=== PATIENT | male | born 1945 | race Caucasian/White ===

== ENCOUNTER → 2018-01-01 | Outpatient (CLI) | payer OTHER, MEDICARE ==
[~2018-01-01] VITALS: Ht 188 cm; Wt 102.1 kg
[~2018-01-01] MED LIST: ASPIR 8181 MG PO; COZAAR 25MG TAB25 MG PO; FISH OIL 1,001000 M2 PO; LIPITOR 20 MG T20 M1 PO; VITAMIN D1000 UNI1 PO; VITAMIN E400 UNI2 PO
--- NOTE | ~2018-01-01 | PATH ---
[facility] [place] [address] PATHOLOGY RPT PROCEDURE Name: FERDINAND HERRERA Room #: REG [facility] Francisco Javier.#: [id number] Admission: 01/01/18 Date of : 45 Discharge: Report #: [id number] Path Case #: [id number] [facility] Accession Number: [id number] . 01 Material submitted: . PART A: POLYP AT HEPATIC FLEXURE X2 PART B: POLYP AT PROXIIMAL TRANSVERSE COLON X2 PART C: POLYP AT 80CM PART D: POLYP AT 50CM PART E: POLYP AT 40CM . 01 Clinical history: . Pre-OP DX: Hx polyps Post-OP DX: Colon polyp, diverticulosis . 02 Diagnosis: A. "Polyp at hepatic flexure x2", biopsy: - Tubular adenoma; no high grade dysplasia. . B. "Polyp at proximal transverse colon x3", biopsy: - Tubular adenoma; no high grade dysplasia. . C. "Polyp at 80 cm", biopsy: - Hyperplastic polyp. . D. "Polyp at 50 cm", biopsy: - Tubular adenoma; no high grade dysplasia. . E. "Polyp at 40 cm", biopsy: - Tubular adenoma; no high grade dysplasia. . (CLW:jamesonjm;01/02/2018) AGA/01/02/2018 . 02 Electronically signed: . Marizol Bailey MD, Pathologist NPI- [id number] . 01 Gross description: . A. Received in formalin labeled "Ferdinand Herrera, polyp at hepatic flexure x2," are 4 segments of aparicio soft tissue measuring 1.6 x 0.9 x 0.4 cm in aggregate dimensions and ranging from 0.4 to 0.7 cm in maximum dimension. The specimen is submitted entirely in cassette A1. . B. Received in formalin labeled "Ferdinand Herrera, polyp proximal transverse colon x3," are 5 segments of aparicio soft tissue measuring 2.2 x 1.1 x 0.3 cm in aggregate dimensions and ranging from 0.3 to 0.7 cm [address] [address] PATHOLOGY RPT PROCEDURE Name: FERDINAND HERRERA Room #: REG ISIDRO Lofton#: [id number] Admission: 01/01/18 Date of : 45 Discharge: Report #: [id number] Path Case #: [id number] maximum dimension. The specimen is submitted entirely in cassette B1. . C. Received in formalin labeled "Ferdinand Herrera, polyp at 80 cm," is a single segment of aparicio soft tissue measuring 0.5 cm in maximum dimension. The specimen is submitted entirely in cassette C1. . D. Received in formalin labeled "Ferdinand Herrera, polyp at 50 cm," is a single segment of aparicio soft tissue measuring 0.5 cm in maximum dimension. The specimen is submitted entirely in cassette D1. . E. Received in formalin labeled "Ferdinand Herrera, polyp at 40 cm," is a single segment of aparicio soft tissue measuring 0.6 cm in maximum dimension. The specimen is submitted entirely in cassette E1. (TSD; 01/01/2018) TOB/TOB . 02 Pathologist provided ICD-10: D12.3, K63.5, Z86.010 . 02 CPT . 082611, 746483, 178216, 394044, 520995 Specimen Comment: A courtesy copy of this report has been sent to Specimen Comment: [phone]. Specimen Comment: Report sent to Performed at: [address], [place] [id number] MD Bertrand Encarnacion MD Phone: [phone] Performed at: [address] [id number] MD Bibiana Munoz MD Phone: [phone]
--- NOTE | ~2018-01-01 | P ---
[facility] [place] [address] [place] [address] PROCEDURE REPORT Name: ABRAM HERRERA Room #: REG [facility]#: [id number] Admission: 01/01/18 Attend Phys: Rodrigo Lobato MD Discharge: Date of : 45 Report #: [id number] THIS REPORT FOR: //name// CC: Juan Antonio Lobato DATE OF SERVICE: 01/01/2018 BRIEF HISTORY: The patient is a 72-year-old male with history of multiple colon adenomas, 11 previous adenomas. Last colonoscopy was 3 years ago. There is also family history of colon cancer in mother and 2 maternal great uncles. I believe his mother was 72 when she was diagnosed. PREOPERATIVE DIAGNOSIS: History of multiple colon polyps and family history of colon cancer. POSTOPERATIVE DIAGNOSES: 1. Multiple colon polyps. 2. Moderately severe sigmoid diverticulosis coli. MEDICATIONS: Deep sedation with propofol per anesthesia. SPECIMENS: 1. Polyps, hepatic flexure x 2. 2. Polyps, proximal transverse colon x 3. 3. Polyp at 80 cm. 4. Polyp at 50 cm. 5. Polyp at 40 cm. ESTIMATED BLOOD LOSS: 3 mL PROCEDURE: Colonoscopy to cecum and terminal ileum with snare polypectomy and biopsy. FINDINGS: Prior to propofol sedation, procedure of colonoscopy was reviewed with the patient as well as potential risks and its complications. He indicates he understands and desires to proceed. With the patient in left lateral decubitus position, digital examination was completed, which revealed no abnormalities. Subsequently, the Allovue colonoscope was introduced into the rectum and advanced under direct vision to the cecum. Done with minimal difficulty. The cecum was identified by the ileocecal valve and the appendiceal orifice. I was able to visualize the distal segment of terminal ileum, which was inspected and noted to be unremarkable. At that point, the scope was slowly withdrawn and careful circumferential views [facility] [address] [place] [address] PROCEDURE REPORT Name: ABRAM HERRERA Room #: REG [facility]#: [id number] Admission: 01/01/18 Attend Phys: Rodrigo Lobato MD Discharge: Date of : 45 Report #: [id number] were obtained including retroflexing the scope in the ascending colon. Upon slow withdrawal of the scope, the prep was noted to be good. The mucosa was within normal limits, normal vascular pattern, normal light reflex. As we withdrew the scope, multiple polyps were removed by snare polypectomy and biopsy. First of all, in the proximal ascending colon, tattoo boone were seen and no residual polyp was seen at that level. At the hepatic flexure, 2 flat polyps were removed. They were in the range of about 6-8 mm, removed by snare polypectomy. In the proximal transverse colon, 3 polyps were seen, 2 removed by cold snare polypectomy and 1 with biopsy forceps. At 50 cm, a 5-6 mm sessile polyp was seen and removed by cold snare polypectomy. At 50 cm, a diminutive polyp was seen and removed by biopsy. At 40 cm, a flat polyp was removed by cold snare polypectomy. As we withdrew the scope through the sigmoid colon, moderate sigmoid diverticular disease was seen. There was no endoscopic evidence of diverticulitis. Upon retroflexion in the rectum, no abnormalities were seen. Scope was withdrawn. The patient tolerated the procedure well. CONDITION OF THE PATIENT UPON DISCHARGE: Following procedure, the patient drowsy, arousable and conversant and will be discharged to home when fully ambulatory. INSTRUCTIONS TO THE PATIENT AND FAMILY AT THE TIME OF DISCHARGE: A total of 8 polyps removed today. He has a history of 11 prior adenomas. We will follow up on pathology; however, due to the large number of polyps and now that he is definitely over lifetime count of 10 adenomas, I would suggest genetic counseling and potentially genetic testing. We will discuss further with the patient. Due to the high polyp count, we will have him return in 2 years for surveillance colonoscopy. <ELECTRONICALLY SIGNED> By: Rodrigo Lobato MD 01/02/18 1122 0905 2223 Rodrigo Lobato MD /nt
== END | disposition home or self-care (01) ==
LOC: GI 06:55
DX: Z12.11 Encounter for screening for malignant neoplasm of colon (principal); Z86.010 Personal history of colon polyps; Z80.0 Family history of malignant neoplasm of digestive organs; D12.3 Benign neoplasm of transverse colon; D12.5 Benign neoplasm of sigmoid colon; K63.5 Polyp of colon; K57.30 Diverticulosis of large intestine without perforation or abscess without bleeding; I10 Essential (primary) hypertension; E78.00 Pure hypercholesterolemia, unspecified; I73.9 Peripheral vascular disease, unspecified; Z87.891 Personal history of nicotine dependence; Z95.1 Presence of aortocoronary bypass graft; Z98.890 Other specified postprocedural states; Z98.42 Cataract extraction status, left eye; Z96.1 Presence of intraocular lens; Z79.82 Long term (current) use of aspirin; Z79.899 Other long term (current) drug therapy
CPT/HCPCS: 62110; 62900

== ENCOUNTER 2018-05-12 11:32 | Emergency (ER) | payer OTHER ==
[~2018-05-12] VITALS: Ht 185.4 cm; Wt 101.6 kg
[2018-05-12 12:01] LABS: ABSOLUTE NEUTROPHILS 4.2 thou/uL (1.4-8.2); BASOPHILS 0.6 % (0.0-2.0); EOSINOPHILS 1.9 % (0.0-3.0); HEMATOCRIT 48.4 % (42.0-52.0); HEMOGLOBIN 17.1 gm/dL (14.0-18.0); LYMPHOCYTES 31.9 % (24.0-44.0); MCH 33.3 pg (26.0-34.0); MCHC 35.3 g/dL (28.0-37.0); MCV 94.2 fL (80.0-100.0); MONOCYTES 6.3 % (1.0-8.0); PLATELET COUNT 210 thou/uL (150-400); POLYS 59.3 % (36.0-66.0); RBC 5.14 mil/uL (4.50-6.00); RDW 12.3 % (10.5-14.5); WBC 7.1 thou/uL (4.0-11.0)
[2018-05-12 12:05] LABS: ANION GAP 9 mmol/L (7-16); BUN 19 mg/dL (7-18); CALCIUM 9.7 mg/dL (8.5-10.1); CHLORIDE 103 mmol/L (98-107); CO2 26 mmol/L (21-32); CREATININE 1.4 mg/dL (0.7-1.3); GLUCOSE 188 mg/dL (74-106); POTASSIUM 4.3 mmol/L (3.5-5.1); SODIUM 138 mmol/L (136-145)
[2018-05-12 12:14] LABS: ALBUMIN 4.1 g/dL (3.4-5.0); MAGNESIUM 2.2 mg/dL (1.8-2.4); SGOT 43 U/L (15-37); SGPT 52 U/L (30-65); TOTAL BILIRUBIN 0.9 mg/dL (<0.1-1.0); TOTAL PROTEIN 7.6 g/dL (6.4-8.2); TROPONIN-I <0.06 ng/mL (<0.06)
[2018-05-12 13:19] VITALS: BP 121/56
--- NOTE | 2018-05-12 16:58 | EKG ---
[address] [address] ELECTROCARDIOGRAM REPORT Name: MYRIAMLIYAHABRAM MELÉNDEZ Agnes Room #: DEP [facility]#: [id number] ������������������ Admission: 05/12/18 ������������������ Attend Phys: Discharge: 05/12/18 ������������������ Date of : 45 Report #: [id number] ����������������������������������������������������������������� [id number] THIS REPORT FOR: //name// [facility] ED Test Date: 2018-05-12 Test Time: 11:38:24 Pat Name: ABRAM HERRERA Department: Room: Gender: Manager Of Clinical: : 1945 Requested By: Fransisco Reis Order Number: [id number] MD: Jose Troncoso Measurements Intervals Levering Rate: 63 P: 68 TN: 147 QRS: 65 QRSD: 112 T: 74 QT: 396 QTc: 406 Interpretive Statements Sinus rhythm Probable left atrial enlargement Borderline intraventricular conduction delay Compared to ECG 05/23/2016 10:15:52 Electronically Signed On 05-12-2018 16:58:27 C[employer]ER [employer] VOICE CONSULTANT by Jose Troncoso [email or web address] ��������������������������������������������� <ELECTRONICALLY SIGNED> ���������������������������������������� By: Jose Troncoso MD ��������������������������������������������� 05/12/18 1658 D: 02/1137 37 Jose Troncoso MD /WILEY
== END 2018-05-12 13:26 | disposition home or self-care (01) ==
LOC: ER 11:32
PROVIDERS: Emergency Medicine
DX: I25.10 Atherosclerotic heart disease of native coronary artery without angina pectoris (principal); I73.9 Peripheral vascular disease, unspecified; I12.9 Hypertensive chronic kidney disease with stage 1 through stage 4 chronic kidney disease, or unspecified chronic kidney disease; N18.9 Chronic kidney disease, unspecified; R55 Syncope and collapse; E78.5 Hyperlipidemia, unspecified; Z95.1 Presence of aortocoronary bypass graft; Z87.891 Personal history of nicotine dependence; Z90.49 Acquired absence of other specified parts of digestive tract

== ENCOUNTER → 2019-05-19 | Outpatient (CLI) | payer OTHER | LOC: SJCVCIMAG 09:53 | DX: I25.810 Atherosclerosis of coronary artery bypass graft(s) without angina pectoris (principal); I10 Essential (primary) hypertension; E78.5 Hyperlipidemia, unspecified; Z95.1 Presence of aortocoronary bypass graft ==

== ENCOUNTER → 2020-01-03 | Outpatient (CLI) | payer OTHER ==
[~2020-01-03] MED LIST changes: +VITAMIN D350 MC3 PO
== END ==
LOC: LAB 11:10
PROVIDERS: ATTEND Specialist
DX: Z01.812 Encounter for preprocedural laboratory examination (principal); Z20.828 Contact with and (suspected) exposure to other viral communicable diseases

== ENCOUNTER → 2020-01-07 | Outpatient (CLI) | payer OTHER ==
[~2020-01-07] VITALS: Ht 188 cm; Wt 102.1 kg
--- NOTE | ~2020-01-07 | P ---
[facility] [place] [address] [address] [place] [address] PROCEDURE REPORT Name: ABRAM HERRERA [id number] Admission: 01/07/20 Attend Phys: Bill Ohara Discharge: Date of : 45 Report #: [id number] THIS REPORT FOR: cc: Andrew Bernal MD,Bill Campbell MD, MD ~ CC: ANDREW Bauer DATE OF SERVICE: 01/07/2020 PROCEDURE PERFORMED: Colonoscopy with biopsies. HISTORY OF PRESENT ILLNESS: The patient is a 74-year-old male with a history of multiple polyps in the past, here for a 2-year followup, also with a family history of colon cancer in his mother and 2 great uncles. The patient denies any symptoms at this time. No previous history of genetic testing. He does report hemorrhoids at times. DESCRIPTION OF PROCEDURE: The risks and benefits of the procedure were explained to the patient, those risks including but not limited to bleeding, perforation and the risk of sedation. He understood these risks and gave informed consent. Sedation was given using propofol per anesthesia. Next, a digital rectal exam showed external hemorrhoids, otherwise normal. Next, using a standard Olympus colonoscope, the scope was placed in the patient's anus and advanced under direct vision to the cecum. The overall prep was excellent. In the cecum, there was a 5 mm sessile polyp. This was removed with cold forceps, otherwise normal. The ileocecal valve was normal. Ascending and transverse colon were normal. In the descending and sigmoid colon, multiple diverticula were noted. Also noted in the sigmoid colon was a 3 mm sessile polyp. This was removed with cold forceps. In the rectum, a 4 mm sessile polyp was also noted and removed with cold forceps. On retroflexion, small nonbleeding internal hemorrhoids were noted. Again, external hemorrhoids were noted. No evidence of bleeding. The scope was then withdrawn and the procedure terminated. The patient tolerated the procedure well. IMPRESSION: 1. Three small colonic polyps. 2. Left-sided diverticulosis. 3. Internal and external hemorrhoids. 4. Otherwise, normal colonoscopy. RECOMMENDATIONS: 1. Await biopsy results. 2. Repeat colonoscopy in [address] [address] PROCEDURE REPORT Name: ABRAM HERRERA Room #: REG [facility] [place]#: [id number] Admission: 01/07/20 Attend Phys: Bill Ohara Discharge: Date of : 45 Report #: [id number] Thank you for allowing me to participate in his care. By: [id number] [id number] Bill Bauer MD /nt
--- NOTE | 2020-01-10 17:06 | PATH ---
[facility] [place] [address] PATHOLOGY RPT PROCEDURE Name: FERDINAND HERRERA [id number] Admission: 01/07/20 Date of : 45 Discharge: Report #: [id number] Path Case #: [id number] [facility] Accession Number: [id number] . 01 Material submitted: . PART A: cecum - POLYP AT CECUM PART B: colon - POLYP AT SIGMOID COLON. Modifiers: sigmoid PART C: rectum - POLYP AT RECTUM . 01 Clinical history: . HX OF POLYPS . 02 Diagnosis: A. Polyp, at cecum, endoscopic biopsy: - Tubular adenoma. - Negative for high-grade dysplasia. . B. Polyp, sigmoid colon, endoscopic biopsy: - Tubular adenoma admixed with hyperplastic changes. - Negative for high-grade dysplasia. . C. Polyp, at rectum, endoscopic biopsy: - Hyperplastic polyp. - Negative for dysplasia. (IUV:tammie; 01/10/2020) QMS 01/10/2020 1459 Local . 02 Electronically signed: . Bibiana Munoz MD, Pathologist NPI- [id number] . 01 Gross description: . A. Received in formalin labeled "Ferdinand Herrera, polyp at cecum" are multiple aparicio-brown soft tissue fragments measuring in aggregate 0.6 x 0.4 x 0.1 cm. The specimen is submitted entirely in A1. . B. Received in formalin labeled "Ferdinand Herrera, polyp at sigmoid colon" is a fragment of aparicio-brown soft tissue measuring 0.5 x 0.3 x 0.1 cm. The specimen is submitted entirely in B1. . C. Received in formalin labeled "Ferdinand Herrera, polyp at rectum" is a fragment of aparicio-brown soft tissue measuring 0.5 x 0.3 x 0.1 cm. The specimen is submitted entirely in C1. [place] [place] [facility] 01/09/2020 104 Local . 02 Pathologist provided ICD-10: D12.0, D12.5, K62.1 [place] [address] PATHOLOGY RPT PROCEDURE Name: FERDINAND HERRERA Room #: REG [facility] Kirsty#: [id number] Admission: 01/07/20 Date of : 45 Discharge: Report #: [id number] Path Case #: [id number] . 02 [facility] . [id number], [id number] Specimen Comment: A courtesy copy of this report has been sent to [phone]- Specimen Comment: [phone] Specimen Comment: Report sent to / DR YA Performed at: [address], [place] [id number] MD Bertrand Encarnacion MD Phone: [phone] Performed at: [address] [id number] MD Bibiana Munoz MD Phone: [phone]
== END ==
LOC: GI 06:55
PROVIDERS: ATTEND Specialist
DX: Z12.11 Encounter for screening for malignant neoplasm of colon (principal); D12.5 Benign neoplasm of sigmoid colon; D12.0 Benign neoplasm of cecum; K57.30 Diverticulosis of large intestine without perforation or abscess without bleeding; K64.8 Other hemorrhoids; K63.89 Other specified diseases of intestine; I25.10 Atherosclerotic heart disease of native coronary artery without angina pectoris; I12.9 Hypertensive chronic kidney disease with stage 1 through stage 4 chronic kidney disease, or unspecified chronic kidney disease; N18.9 Chronic kidney disease, unspecified; E78.00 Pure hypercholesterolemia, unspecified; Z72.89 Other problems related to lifestyle; Z87.891 Personal history of nicotine dependence; Z79.899 Other long term (current) drug therapy; Z98.890 Other specified postprocedural states
CPT/HCPCS: 62110; 62900

== ENCOUNTER → 2020-02-22 | Outpatient (CLI) | payer OTHER | LOC: SJCVC 10:25 | PROVIDERS: ATTEND Internal Medicine Cardiovascular Disease | DX: I25.810 Atherosclerosis of coronary artery bypass graft(s) without angina pectoris (principal); I10 Essential (primary) hypertension; E78.5 Hyperlipidemia, unspecified; I71.4 Abdominal aortic aneurysm, without rupture; I73.9 Peripheral vascular disease, unspecified; I65.23 Occlusion and stenosis of bilateral carotid arteries; Z95.1 Presence of aortocoronary bypass graft; Z79.82 Long term (current) use of aspirin; Z79.899 Other long term (current) drug therapy; Z87.891 Personal history of nicotine dependence ==

== ENCOUNTER → 2020-02-23 | Outpatient (CLI) | payer OTHER | LOC: SJCVCIMAG 08:21 | PROVIDERS: ATTEND Internal Medicine Cardiovascular Disease | DX: I71.4 Abdominal aortic aneurysm, without rupture (principal); Z87.891 Personal history of nicotine dependence ==

== ENCOUNTER → 2020-11-23 | Outpatient (CLI) | payer OTHER | LOC: SJCVCIMAG 08:24 | PROVIDERS: ATTEND Internal Medicine Cardiovascular Disease | DX: I25.10 Atherosclerotic heart disease of native coronary artery without angina pectoris (principal); I10 Essential (primary) hypertension; E78.5 Hyperlipidemia, unspecified ==